=== PATIENT | female | born 1985 | race Two or more races ===

== ENCOUNTER 2023-07-30 18:37 | Inpatient (IN) | payer MEDICARE, OTHER ==
[~2023-07-30] VITALS: Ht 172.7 cm; Wt 125.2 kg
[2023-07-30 20:08] LABS: Basophils # (auto) 0 10 ^3/uL (0-0.2); Basophils % (auto) 0.2 % (0.0-2.0); Eosinophils # (auto) 0 10 ^3/uL (0-0.8); Eosinophils % (auto) 0.1 % (0.0-7.0); Hematocrit 41.5 % (36.0-46.0); Hemoglobin 13.6 g/dL (12.2-16.2); Lymphocytes # (auto) 1.5 10 ^3/uL (0.4-5.4); Lymphocytes % (auto) 13.3 % (10.0-50.0); Mean Corpuscular Hemoglobin 29.7 pg (28.0-32.0); Mean Corpuscular Hgb Conc. 32.9 g/dL (32.0-36.0); Mean Corpuscular Volume 90.3 fL (80.0-100.0); Monocytes # (auto) 0.4 10 ^3/uL (0-1.3); Monocytes % (auto) 3.5 % (0.0-12.0); Neutrophils # (auto) 9.4 10 ^3/uL (1.6-8.6); Neutrophils % (auto) 82.9 % (37.0-80.0); Red Blood Cells 4.59 10^6/uL (4.0-5.20); White Blood Cell 11.3 10^3/uL (4.4-10.8)
[2023-07-30 20:27] LABS: Alanine Aminotransferase 25 U/L (7-40); Albumin 4.5 g/dL (3.2-4.8); Alkaline Phosphatase 72 U/L (46-116); Anion Gap 8 (5-15); Aspartate Aminotransferase 17 U/L (13-40); BUN/Creatinine Ratio 15.9 (10.0-20.0); Bilirubin, Total 1.4 mg/dL (0.2-1.0); Blood Urea Nitrogen 11 mg/dL (9-23); Calcium 10.7 mg/dL (8.7-10.4); Carbon Dioxide 25 mmol/L (20-30); Chloride 102 mmol/L (98-107); Glucose 200 mg/dL (74-106); Lipase 43 U/L (12-53); Sodium 135 mmol/L (136-145); Total Protein 7.3 g/dL (5.7-8.2)
[2023-07-30 20:58] LABS: Urine Bacteria NONE SEEN /hpf (None Seen); Urine Blood Negative /uL (Negative); Urine Clarity Clear (Clear); Urine Color Yellow (Yellow); Urine Mucus FEW (None Seen); Urine Protein, UAD 1+ (Negative); Urine Specific Gravity 1.047 (1.001-1.035); Urine Urobilinogen Normal (Negative); Urine WBC 1 /hpf (0 - 5); Urine pH 5.5 (5.0-8.0)
[2023-07-30] MEDS: MORPHINE SULFATE 4 MG/ML SYR/VIAL IV ONE (22:58)
[2023-07-30] MEDS: SODIUM CHLORIDE 0.9% 1,000 ML IV ONE (22:59)
[2023-07-30] MEDS: ONDANSETRON HCL 4 MG/2 ML VIAL IV ONE (22:59)
[2023-07-30] MEDS: FAMOTIDINE (10MG/ML) 2ML VL IV ONE (22:59)
[2023-07-30] MEDS ORDERED: HYDROcodone-ACET 5/325MG TAB PO PRN (23:15)
[2023-07-30] MEDS: SODIUM CHLORIDE 0.9% 1,000 ML IV SCH (23:15)
[2023-07-30] MEDS ORDERED: ONDANSETRON HCL 4 MG/2 ML VIAL IV PRN (23:15)
[2023-07-30] MEDS ORDERED: ACETAMINOPHEN 325 MG TAB PO PRN (23:15)
[2023-07-30] MEDS ORDERED: DOCUSATE SOD 100 MG CAP PO PRN (23:15)
[2023-07-31] VITALS (8 sets, daily range): BP systolic 94–106; BP diastolic 51–67; PULSE 71–99; RESP 16–20; TEMP 98–98.9; O2SAT 94–100
[2023-07-31] MEDS ORDERED: NITROGLYCERIN 0.4 MG SL TAB SL PRN ×2 (00:15→00:30)
[2023-07-31] MEDS ORDERED: MORPHINE SULFATE INJ 2 MG/ml SYRG IV PRN ×2 (00:15→00:30)
[2023-07-31] MEDS ORDERED: SPIR25TA8 PO (08:44)
[2023-07-31] MEDS: FAMOTIDINE (10MG/ML) 2ML VL IV SCH (11:31)
[2023-07-31] MEDS ORDERED: LORazepam 2MG/ML-1ML VIAL IV PRN (16:45)
[2023-07-31] MEDS ORDERED: CYAN500T25 PO (17:00)
[2023-07-31] MEDS ORDERED: CYAN-17 PO (17:00)
[2023-07-31] MEDS ORDERED: GLIP5TAB12 PO (17:00)
[2023-07-31] MEDS ORDERED: METF-370 PO (17:00)
[2023-07-31] MEDS ORDERED: DEXTROSE (50%) 50ML SYRG IV PRN (17:15)
[2023-07-31] MEDS: InsuLIN REG 1unit/0.01ml Soln (100units/ml) SC SCH ×2 (17:15→21:26)
[2023-07-31] MEDS: ACCU-CHEK COMFORT CURVE STRIP VI SCH (17:26)
[2023-07-31] MEDS: SPIRONOLACTONE 25 MG TAB PO SCH (21:16)
[2023-08-01 05:00] VITALS: BP 91/49; PULSE 69; RESP 16; TEMP 97.9; O2SAT 96
[2023-08-01 08:00] VITALS: PULSE 72; RESP 18; O2SAT 96
[2023-08-01 09:00] VITALS: BP 86/51; PULSE 72; RESP 18; TEMP 97.8; O2SAT 96
[2023-08-01] MEDS: CYANOCOBALAMIN 500 MCG TAB PO SCH (10:18)
[2023-08-01] MEDS: GADOTERATE MEG 7.5 MMOL/15ml INJ (0.5MMOL/ml) IV ONE (11:53)
[2023-08-01 13:00] VITALS: BP 102/58; PULSE 68; RESP 16; TEMP 98; O2SAT 97
[2023-08-01 15:04] VITALS: BP 102/58; PULSE 68; RESP 16; TEMP 98; O2SAT 97
== END 2023-08-01 16:10 | disposition home or self-care (01) | DRG 103 ==
LOC: ER 18:37 → EDBD 18:37 → WEST WING 07-31 00:11 → ER 07-31 00:11 → OVERFLOW 07-31 00:11 → WEST WING 07-31 06:30
PROVIDERS: ADMIT Nurse Practitioner Family; ATTEND Nurse Practitioner Family
DX: R51.9 Headache, unspecified (principal); Z68.41 Body mass index [BMI] 40.0-44.9, adult; R22.0 Localized swelling, mass and lump, head; R11.2 Nausea with vomiting, unspecified; I10 Essential (primary) hypertension; E66.9 Obesity, unspecified; F17.200 Nicotine dependence, unspecified, uncomplicated; Z83.3 Family history of diabetes mellitus; Z82.49 Family history of ischemic heart disease and other diseases of the circulatory system
CPT/HCPCS: 36415; 70450; 70553; 80053; 81001; 81025; 82962; 83690; 84484; 85025; G0378; J1815; J3490